=== PATIENT | male | born 1955 | race Caucasian/White ===

== ENCOUNTER 2017-08-12 10:06 | Day surgery (SDC) | payer OTHER ==
[2017-08-12 11:26] LABS: POTASSIUM 4.2 mmol/L (3.5-5.1)
[2017-08-12] MEDS ORDERED: LIDOCAINE 1% (MDV) 20 ML INJ (12:35)
[2017-08-12] MEDS ORDERED: FENTAnyl 50 MCG/ML VIAL (12:35)
[2017-08-12] MEDS ORDERED: MIDAZOLAM 1 MG/ML 2 ML INJ (12:35)
[2017-08-12] MEDS ORDERED: IODIXANOL LOCM 50 ML BTL (12:37)
== END 2017-08-12 13:50 | disposition home or self-care (01) ==
LOC: SDS 10:06
DX: I12.0 Hypertensive chronic kidney disease with stage 5 chronic kidney disease or end stage renal disease (principal); N18.6 End stage renal disease
CPT/HCPCS: 37248; 37249; 84132